=== PATIENT | male | born 1985 ===

== ENCOUNTER 2018-03-15 10:07 | Emergency (ER) | payer SELFPAY ==
[~2018-03-15] VITALS: Ht 165.1 cm; Wt 72.6 kg
== END 2018-03-15 11:34 | disposition home or self-care (01) ==
LOC: ED 10:07
DX: S01.511A Laceration without foreign body of lip, initial encounter (principal); W55.12XA Struck by horse, initial encounter; Y93.89 Activity, other specified; Y92.89 Other specified places as the place of occurrence of the external cause; Y99.8 Other external cause status